=== PATIENT | male | born 1995 | race Caucasian/White ===

== ENCOUNTER 2020-08-14 06:53 | Day surgery (SDC) | payer BC ==
[~2020-08-14] VITALS: Ht 162.6 cm; Wt 82.2 kg
[~2020-08-14 06:53] MED LIST: AMOX50SU PO; CEPH500 PO; CODACE30 PO; CYCL10 PO; HYDACE5 PO; IBUP200 PO; RXCODACET PO; SULTRIDS PO
[2020-08-14] MEDS ORDERED: OMEP20ER (07:08)
== END 2020-08-14 08:42 | disposition home or self-care (01) ==
LOC: ORSCSDS 06:53
PROVIDERS: Student in an Organized Health Care Education/Training Program
PROC: 0DB68ZX Excision of Stomach, Via Natural or Artificial Opening Endoscopic, Diagnostic (ICD-10-PCS; principal; 2020-08-14 08:00)
PROC: 0DB98ZX Excision of Duodenum, Via Natural or Artificial Opening Endoscopic, Diagnostic (ICD-10-PCS; principal; 2020-08-14 08:00)
PROC: 0DB58ZX Excision of Esophagus, Via Natural or Artificial Opening Endoscopic, Diagnostic (ICD-10-PCS; principal; 2020-08-14 08:00)
DX: R10.13 Epigastric pain (principal); B96.81 Helicobacter pylori [H. pylori] as the cause of diseases classified elsewhere; F17.210 Nicotine dependence, cigarettes, uncomplicated; Z79.899 Other long term (current) drug therapy
CPT/HCPCS: 88305; 88342; J0330; J0461; J2250; J2405; J2704; J7120